=== PATIENT | female | born 1950 | race Caucasian/White ===

== ENCOUNTER 2020-09-02 16:09 | Emergency (ER) | payer OTHER, MEDICARE, BC ==
[~2020-09-02] VITALS: Ht 157.5 cm; Wt 59.0 kg
[~2020-09-02 16:09] MED LIST: ? CHOLESTEROL MED; ALBU90OI6 INH; ATOR20 PO; CARB100CH; CLOP75 PO; CYCL10 PO; Cipro500 MG PO; FLUSAL2505 INH; HYDCHL25 PO; LISHYD1012 PO; Norco 5-325 Ta1 EACH PO; OXYACE5T PO; PREG300 PO; Pyridium200 MG PO; Zestril40 MG PO
[2020-09-02] MEDS ORDERED: Colace100 MG PO (20:22)
[2020-09-02] MEDS ORDERED: HYDR1TAB94 PO (20:22)
== END 2020-09-02 20:39 | disposition home or self-care (01) ==
LOC: ER 16:09
DX: M54.5 Low back pain (principal); E11.9 Type 2 diabetes mellitus without complications; J44.9 Chronic obstructive pulmonary disease, unspecified; I10 Essential (primary) hypertension; F17.200 Nicotine dependence, unspecified, uncomplicated; Z88.0 Allergy status to penicillin; Z79.02 Long term (current) use of antithrombotics/antiplatelets; Z79.899 Other long term (current) drug therapy
CPT/HCPCS: 72100; 99284-25; A9270

== ENCOUNTER → 2021-01-14 | Outpatient (CLI) | payer MEDICARE, BC, OTHER ==
[~2021-01-14] MED LIST changes: +Colace100 MG PO; +HYDR1TAB94 PO
== END | disposition home or self-care (01) ==
LOC: LAB SHORT 15:50 → LAB 15:50
DX: N39.0 Urinary tract infection, site not specified (principal)
CPT/HCPCS: 87086